=== PATIENT | male | born 1955 | race Caucasian/White ===

== ENCOUNTER 2018-08-01 09:38 | Day surgery (SDC) | payer BC ==
[~2018-08-01 09:38] MED LIST: ASPIRIN LOW DOS81 M2 PO; ASPIRIN81 MG PO; CENTRUM SILVER PO; CIPROFLOXACN500 MG PO; DILAUDID 2MG2 MG/TA1 PO; FISH OIL1000 MG PO; KAZANO1000 MG PO; LIPITOR40 MG PO; LOSARTAN POT100 MG PO; LOSARTAN POT50 MG PO; METFORMIN500 MG PO; METOPROL TAR25 M1 PO; OMEGA 31000 MG PO; SAW PALMETTO80 MG PO; VITAMIN D400 MG OR; [UNRECOGNIZED DRUG - OTHER] PO
[2018-08-01 11:00] VITALS: BP 118/57
== END 2018-08-01 11:18 | disposition home or self-care (01) | DRG 951 ==
LOC: ENDO 09:38
PROVIDERS: ATTEND Surgery
PROC: 0DJD8ZZ Inspection of Lower Intestinal Tract, Via Natural or Artificial Opening Endoscopic (ICD-10-PCS; principal; 2018-08-01)
DX: Z12.11 Encounter for screening for malignant neoplasm of colon (principal); I10 Essential (primary) hypertension; Z86.010 Personal history of colon polyps

== ENCOUNTER 2019-02-07 10:28 | Emergency (ER) | payer BC ==
[~2019-02-07] VITALS: Ht 177.8 cm; Wt 110.0 kg
[~2019-02-07 10:28] MED LIST changes: +COZAAR50 MG PO
[2019-02-07 10:45] LABS: HEMATOCRIT 39.9 % (39.0-50.0); IMMATURE GRANULOCYTES 0.4 % (0.0-5.0); MEAN CORPUSCULAR HGB CONC 32.6 g/L CALC (32.0-36.0); NEUT# 5.71 thou/uL (1.82-7.42); RED BLOOD COUNT 4.19 mill/uL (4.70-6.10); RED CELL DISTRI WIDTH 12.7 % (11.5-15.5)
[2019-02-07 10:46] LABS: GFR > 60 ML/MIN (>=60 (CALC)); GFR FOR AFR.AMER. > 60 ML/MIN (>=60 (CALC))
[2019-02-07 10:46] LABS: MEAN CELL VOLUME 95.2 fL CALC (80.0-100.0)
[2019-02-07 11:00] LABS: INTERNATIONAL NORMALIZED RATIO 1.1 RATIO (0.7-1.3); PROTHROMBIN TIME 11.1 SECONDS (9.0-12.5)
[2019-02-07 11:47] LABS: ALKALINE PHOSPHATASE 75 u/l (38-126); ANION GAP 13 (6-22 (CALC)); BILIRUBIN, TOTAL 0.6 mg/dL (0.0-1.4); BUN 13 mg/dL (8-23); BUN/CREATININE RATIO 19 (12-20 (CALC)); CARBON DIOXIDE 23 mmol/l (22-30); CHLORIDE 105 mmol/l (95-108); CREATININE 0.7 mg/dL (0.7-1.3); GFR > 60 ML/MIN (>=60 (CALC)); GFR FOR AFR.AMER. > 60 ML/MIN (>=60 (CALC)); SGOT/AST 47 u/l (19-48); SODIUM 137 mmol/l (137-146); TOTAL PROTEIN 6.8 g/dL (6.3-8.2)
[2019-02-07 13:17] VITALS: BP 118/65
== END 2019-02-07 13:17 | disposition short-term general hospital (02) | DRG 66 ==
LOC: ED 10:28
PROVIDERS: Family Medicine
DX: I63.9 Cerebral infarction, unspecified (principal); R47.81 Slurred speech; R53.1 Weakness
CPT/HCPCS: Q9967